=== PATIENT | female | born 1990 | race Caucasian/White ===

== ENCOUNTER 2021-09-29 17:03 | Emergency (ER) | payer OTHER ==
[~2021-09-29 17:03] MED LIST: COL-RITE250 MG PO; FLEXERIL 10 MG10 MG PO; IRON325 M1 PO; NAPROSYN500 MG PO; PERCOCET 5/325 T1 EA PO; PERCOCET 7.5-31 EACH PO; SPRINTEC 28 DA1 EACH PO; ZOFRAN4 MG PO
== END 2021-09-29 20:12 | disposition home or self-care (01) ==
LOC: ER1 17:03
DX: O26.859 Spotting complicating pregnancy, unspecified trimester (principal); O99.891 Other specified diseases and conditions complicating pregnancy; R10.9 Unspecified abdominal pain
CPT/HCPCS: 81001; 99281